=== PATIENT | female | born 1995 | race African-American/Black ===

== ENCOUNTER 2021-07-16 03:38 | Emergency (ER) | payer OTHER ==
[~2021-07-16] VITALS: Ht 167.6 cm; Wt 84.8 kg
[2021-07-16] MEDS ORDERED: INTESTINEX680 M1 PO (07:04)
[2021-07-16] MEDS ORDERED: BACTRIM DS TAB1 EACH PO (07:04)
[2021-07-16] MEDS ORDERED: FLUCONAZOLE150 MG PO (07:04)
[2021-07-16] MEDS ORDERED: CLOTRIMAZOLE 321 GM VAG (07:09)
== END 2021-07-16 07:19 | disposition home or self-care (01) ==
LOC: ER 03:38
DX: N39.0 Urinary tract infection, site not specified (principal)